=== PATIENT | male | born 1955 | race Caucasian/White ===

== ENCOUNTER 2020-12-10 02:49 | Inpatient (IN) ==
[2020-12-10 03:35] LABS: Basophils # (auto) 0.03 K/uL (0-0.2); Basophils % (auto) 0.1 %; Eosinophils # (auto) 0.13 K/uL (0-0.5); Eosinophils % (auto) 0.6 %; Hematocrit (blood only) 49.1 % (42-52); Hemoglobin 16.9 g/dL (14.0-18.0); Immature Granulocytes # (auto) 0.11 K/uL (0.00-0.02); Immature Granulocytes % (auto) 0.5 %; Lymphocytes # (auto) 1.23 K/uL (1.2-3.4); Lymphocytes % (auto) 5.9 %; Mean Corpuscular Hemoglobin 32.4 pg (25-34); Mean Corpuscular Hgb Conc 34.4 g/dL (32-36); Mean Corpuscular Volume 94.1 fL (80-100); Mean Platelet Volume 11.3 fL (7.4-10.4); Monocytes # (auto) 1.67 K/uL (0.11-0.59); Neutrophils # (auto) 17.75 K/uL (1.4-6.5); Neutrophils % (auto) 84.9 %; Platelet Count 225 K/uL (130-400); RDW Coefficient of Variation 13.3 % (11.5-14.5); RDW Standard Deviation 45.9 fL (36.4-46.3); Red Blood Count 5.22 M/uL (4.7-6.1); White Blood Count 20.92 K/uL (4.8-10.8)
[2020-12-10 03:59] LABS: Alanine Aminotransferase 33 U/L (12-78); Albumin Level 4.8 gm/dl (3.4-5.0); Aspartate Aminotransferase 19 U/L (15-37); BUN Creatinine Ratio 13.4 (10-20); Blood Urea Nitrogen 31 mg/dl (7-18); Calcium 9.9 mg/dl (8.5-10.1); Carbon Dioxide 26 mmol/L (21-32); Chloride 108 mmol/L (98-107); Creatinine Clr Calc Pharmacy 37.4 ml/min; Est GFR (African American) 32.8 ml/min; Est GFR (Non-African American) 28.3 ml/min; Glucose 171 mg/dl (70-99); Lipase 84 U/L (73-393); Potassium 4.3 mmol/L (3.5-5.1); Sodium 140 mmol/L (136-145)
[2020-12-10 04:04] LABS: Albumin Globulin Ratio 1.4 (0.9-2); Alkaline Phosphatase 67 U/L (45-117); Bilirubin,Total 0.8 mg/dl (0.2-1); Globulin 3.4 gm/dl (2.5-4.0); Total Protein 8.2 gm/dl (6.4-8.2); Troponin I < 0.015 ng/ml (0-0.045)
--- NOTE | 2020-12-10 04:13 | Emergency Department Note ---
Impression & Plan Acute kidney injury, Syncope, Concussion, Vomiting and diarrhea Admit to the [facility] ED Provider Note NAME: ANOOP PERSAUD AGE: 65 SEX: M ARRIVES VIA: Ambulance INFORMANT: Patient and the patient's ED PROVIDER(S): Petra Cloud DO CHIEF COMPLAINT: Syncope PLAN: Disposition: Admit to the [facility] group Condition: Fair MEDICAL DECISION MAKING: This is a 65-year-old male patient who presents to the emergency department after a syncopal episode. The patient developed severe explosive nausea, vomiting, and diarrhea around 10 PM this evening. Patient had a syncopal episode while in the toilet around 1 AM this morning where he fell from the toilet and struck his head and face on a tile floor. The patient remained unresponsive on the floor for some time and his called EMS. The patient presented to the emergency department having additional episode of diarrhea. He had no further episodes of vomiting. Laboratory studies showed an increased creatinine compared to his creatinine level in September of 1.3. Patient received IV normal saline solution here in the emergency department. [facility] for [facility] management. Triage Nursing notes reviewed and agree with them. Additional history obtained from his who is at the bedside Prior medical records reviewed Vital Signs: reviewed and unremarkable Differential diagnosis: C-spine injury, head injury, dehydration, foodborne illness, infectious diarrhea, viral illness ER treatment provided: IV normal saline bolus IV normal saline drip Diagnostics interpreted by me: ECG: Normal sinus rhythm at a rate of [address] segment elevation or signs of ischemia. There is no ectopy. QTC is 426 ms. Cardiac Monitoring: Normal sinus rhythm at 85 Laboratory studies: See below HPI: 65/M arrives for evaluation of syncope. The patient describes feeling his usual state of health throughout the day today until 9 PM this evening when he ate dinner which consisted of a chip steak sandwich with cheese and tomatoes. Patient and his ate the same meal. Around 10 PM, the patient developed explosive nausea, vomiting and diarrhea. He had between 6 and 10 diarrheal bowel movements. He then developed vomiting. The patient then had a syncopal episode and fell from the toilet striking his forehead and face off of the tile floor. He remained unresponsive on the floor and EMS was called. ROS: See above HPI for pertinent positives & negatives. A total of 10 systems reviewed and were otherwise negative. PAST MEDICAL HISTORY:Gout, hypertension, hypercholesterolemia PAST SURGICAL HISTORY:The patient had a recent shoulder surgery FAMILY HISTORY:See Below SOCIAL HISTORY:The patient lives with his . HOME MEDICATIONS:See list ALLERGIES:None VITALS:See Below PHYSICAL EXAMINATION: HEENT: Head - normocephalic with a small hematoma to the mid forehead. Pupils are equal, round, and reactive to light. Extraocular eye muscles are intact and sclera are anicteric. Nose - moist nasal mucosa without discharge. Mouth - moist buccal mucosa with some edema to the upper lip. Oropharynx is noneryth ematous and there is no tonsillar exudate or edema noted. Neck: Supple; no pain to palpation over the posterior cervical spine. There is no JVD or cervical lymphadenopathy noted. Heart: Regular rate and rhythm. There is a normal S1 and S2 with no murmurs, clicks, or gallops appreciated. Lungs: Clear to auscultation bilaterally with no wheezes, rales, or rhonchi. Abdomen: Soft, completely nontender, nondistended, with good bowel sounds. There are no palpable pulsatile masses or hepatosplenomegaly. There is no guarding, rigidity, or rebound noted. Extremities: No evidence of cyanosis, clubbing, or edema. There are easily palpable peripheral pulses. Neuro:The patient is awake and alert, oriented to day, time, and place. Muscle strength is 5/5 in all 4 extremities. The patient has equal rehab manager strength and equal pedal push and pull. There are no cerebellar signs. ED COURSE: Times/Reassessments: 0300: The patient was evaluated in room C 11. A complete history and physical was performed. A twelve-lead EKG was obtained as described above. An order was placed for continuous cardiac monitoring. The patient was in a normal sinus rhythm at a rate of 85. The patient was given an additional 500 cc bolus of normal saline solution. He had a few additional episodes of stooling but no further vomiting. We were able to collect a stool specimen for culture. The patient was able to drink ice water without difficulty and had no further nausea. Vital signs remained stable. I reviewed the results of the laboratory studies with the patient. I did obtain recent blood work from the [facility] system. It seems that the patient's creatinine level has more than doubled since September. I discussed the case with the [facility] hospitalist and they will evaluate for further management. Petra Cloud DO Past Med/Surg History Social History Smoking Status: Never smoker Feels Safe at Home: Yes Allergies Allergies Allergy/AdvReac Type Severity Reaction Status Date / Time No Known Allergies Allergy NONE Verified 12/10/20 05:09 Home Meds Home Medications Medication Instructions Recorded Confirmed allopurinol 300 mg tablet 300 mg PO DAILY 12/10/20 12/10/20 atorvastatin 20 mg tablet 20 mg PO DAILY 12/10/20 12/10/20 hydrochlorothiazide 12.5 mg capsule 12.5 mg PO DAILY 12/10/20 12/10/20 lisinopril 40 mg tablet 40 mg PO DAILY 12/10/20 12/10/20 Results & Data (ED) Vital Signs Vital Signs - 24 hr 12/10/20 03:05 12/10/20 03:30 12/10/20 04:00 Temperature 36.7 C Temperature Source Oral Pulse Rate 85 82 85 Respiratory Rate 15 15 18 Respiratory Effort / Characteristics Non-Labored Spontaneous Respiratory Depth Normal Blood Pressure 108/83 129/85 144/75 H Blood Pressure Mean 91 99 98 Pulse Oximetry 100 95 97 Oxygen Delivery Method Room Air Room Air Room Air Sepsis New/Unexplained Change in Mental Status N/A Sepsis Action Taken by Nursing No Action Required 12/10/20 04:30 12/10/20 05:00 Temperature Temperature Source Pulse Rate 79 78 Respiratory Rate 19 14 Respiratory Effort / Characteristics Respiratory Depth Blood Pressure 134/89 134/87 Blood Pressure Mean 104 102 Pulse Oximetry 96 96 Oxygen Delivery Method Room Air Room Air Sepsis New/Unexplained Change in Mental Status Sepsis Action Taken by Nursing Laboratory Data Result diagrams: 12/10/20 03:06 12/10/20 03:06 Lab Results 12/10/20 12/10/20 12/10/20 Range/Units 03:06 03:06 05:00 WBC 20.92 H (4.8-10.8) K/uL RBC 5.22 (4.7-6.1) M/uL Hgb 16.9 (14.0-18.0) g/dL Hct 49.1 (42-52) % MCV 94.1 (80-100) fL MCH 32.4 (25-34) pg MCHC 34.4 (32-36) g/dL RDW Std Deviation 45.9 (36.4-46.3) fL RDW Coeff of Lore 13.3 (11.5-14.5) % Plt Count 225 (130-400) K/uL MPV 11.3 H (7.4-10.4) fL Immature Gran % (Auto) 0.5 % Neut % (Auto) 84.9 % Lymph % (Auto) 5.9 % Scurry % (Auto) 8.0 % Eos % (Auto) 0.6 % Baso % (Auto) 0.1 % Neut # (Auto) 17.75 H (1.4-6.5) K/uL Lymph # (Auto) 1.23 (1.2-3.4) K/uL Scurry # (Auto) 1.67 H (0.11-0.59) K/uL Eos # (Auto) 0.13 (0-0.5) K/uL Baso # (Auto) 0.03 (0-0.2) K/uL Immature Gran # (Auto) 0.11 H (0.00-0.02) K/uL Sodium 140 (136-145) mmol/L Potassium 4.3 (3.5-5.1) mmol/L Chloride 108 H (98-107) mmol/L Carbon Dioxide 26 (21-32) mmol/L Anion Gap 6.0 (3-11) BUN 31 H (7-18) mg/dl Creatinine 2.34 H (0.6-1.4) mg/dl Est Cr Clr Drug Dosing 37.4 ml/min Est GFR ( Amer) 32.8 ml/min Est GFR (Non-Af Amer) 28.3 ml/min BUN/Creatinine Ratio 13.4 (10-20) Glucose 171 H (70-99) mg/dl Calcium 9.9 (8.5-10.1) mg/dl Total Bilirubin 0.8 (0.2-1) mg/dl AST 19 (15-37) U/L ALT 33 (12-78) U/L Alkaline Phosphatase 67 (45-117) U/L Troponin I < 0.015 (0-0.045) ng/ml Total Protein 8.2 (6.4-8.2) gm/dl Albumin 4.8 (3.4-5.0) gm/dl Globulin 3.4 (2.5-4.0) gm/dl Albumin/Globulin Ratio 1.4 (0.9-2) Lipase 84 (73-393) U/L COVID-19 Eval Order Covid19 at [facility] Administered Medications Sodium Chloride (Nss) 500 mls @ 125 mls/hr IV .Q4H ESME Stop: 01/09/21 04:59 Last Admin: 12/10/20 05:13 Dose: 125 mls/hr Documented by: [id number] Discontinued Medications Sodium Chloride (Nss) 500 mls @ 999 mls/hr IV .Q31M ONE Stop: 12/10/20 05:17 Last Infusion: 12/10/20 04:40 Dose: 0 mls/hr Documented by: [id number] Admin: 12/10/20 04:00 Dose: 999 mls/hr Documented by: [id number] Discharge Plan Visit Data Chief Complaint: Syncope Stated Complaint: SYNCOPE, N/V/D ED Provider: Petra Cloud Discharge Problem: Acute kidney injury, Syncope, Concussion, Vomiting and diarrhea Forms Stand Alone Forms: [employer] Prescriptions Prescriptions: No Action atorvastatin 20 mg tablet 20 mg PO DAILY RF: 0 hydrochlorothiazide 12.5 mg capsule 12.5 mg PO DAILY RF: 0 allopurinol 300 mg tablet 300 mg PO DAILY RF: 0 lisinopril 40 mg tablet 40 mg PO DAILY RF: 0 Referrals Referrals: Narciso Beck MD [Primary Care Provider] - Discharge Problem: Syncope Qualifiers: Syncope type: vasovagal syncope Qualified Code(s): R55 - Syncope and collapse Concussion Qualifiers: Encounter type: initial encounter Loss of consciousness presence/duration: with LOC of 30 min or less Qualified Code(s): S06.0X1A - Concussion with loss of consciousness of 30 minutes or less, initial encounter
[2020-12-10] MEDS ORDERED: SODIUM CHLORIDE 0.9% 500 ML IV ONE (04:47)
[2020-12-10] MEDS ORDERED: SODIUM CHLORIDE 0.9% 500 ML IV SCH (05:00)
[2020-12-10] MEDS ORDERED: SODIUM CHLORIDE 0.9% 1000ML 1,000 ML IV SCH ×2 (08:01→19:45)
[2020-12-10] MEDS ORDERED: NITROGLYCERIN SL 0.4 MG/TAB TAB SL PRN (08:01)
[2020-12-10] MEDS ORDERED: ACETAMINOPHEN 325 MG TAB PO PRN (08:01)
[2020-12-10] MEDS ORDERED: hydrALAZINE HCL 20 MG/ML VIAL IV PRN (08:01)
[2020-12-10] MEDS ORDERED: ONDANSETRON INJ 2 MG/ML 2 ML VIAL IV PRN (08:01)
--- NOTE | 2020-12-10 08:17 | History and Physical Report ---
DATE OF ADMISSION: 12/10/2020. CHIEF COMPLAINT: Syncope. HISTORY OF PRESENT ILLNESS: A 65-year-old male with past medical history significant for gout, hyperlipidemia, prediabetes, chronic rhinitis, history of dyspnea, hypertension, history of tinnitus, who lives at home with his , comes because of syncope. The patient worked whole day yesterday outside, but he does not think he was dehydrated because he was not sweating. In the nighttime around 9:00 p.m., he and his ate home made steak sandwich with tomatoes on it. Later his seemed to be okay, but he developed severe diarrhea. He said he had about 8-9 episodes of diarrhea and 6 times vomited and while sitting on the commode, last time he suddenly fell front on his face and he passed out. His says he passed out for about 15-20 seconds and after that he was confused for about 15 minutes. His left side of upper lip is swollen, but there is no obvious bleeding. He has some bruise on the top of his head. Since he came to the ER, his nausea has improved and no more episodes of diarrhea. The patient denies any fever. No chest pain, no shortness of breath, no cough. Currently, no headache, no neck pain. No blurred visions, no double vision, no earache, no runny nose, no sore throat. No abdominal pain, no swelling in the legs, no rash. Hemodynamics are stable currently. ALLERGIES: No known drug allergies. PAST MEDICAL HISTORY: As mentioned above. PAST SURGICAL HISTORY: Colonoscopy, partial removal of colon for benign tumor, left knee arthroscopy, bilateral knee surgery for cartilage. MEDICATIONS: The patient is on allopurinol 300 mg p.o. daily, atorvastatin 20 mg p.o. daily, hydrochlorothiazide 12.5 mg p.o. daily, lisinopril 40 mg p.o. daily. FAMILY HISTORY: Significant for brother has colon polyps, father has colon polyps, aunt has colon cancer. SOCIAL HISTORY: , no smoking. Alcohol rarely. No drug use. REVIEW OF SYSTEMS: As per HPI. Rest of the review of systems is negative. PHYSICAL EXAMINATION: GENERAL: The patient is of moderate build, not in acute distress. VITAL SIGNS: Temperature 36.7, pulse 78, respiratory rate 14, blood pressure 134/87, oxygen 96% on room air. HEENT: Pupils equal, round and reactive to light. Some bruise seen on the top of the head and frontal region. Left side face upper lip is swollen. Oral mucosa moist. NECK: No JVD. No neck masses. Supple. CARDIOVASCULAR: S1 and S2 heard. Regular rate and rhythm. No murmur, no gallop. RESPIRATORY SYSTEM: Normal AP diameter. No accessory muscle use. No wheezing, no crackles. ABDOMEN: Soft, bowel sounds present, nontender, no distention. CENTRAL NERVOUS SYSTEM: Cranial nerves II-XII grossly intact, nonfocal. EXTREMITIES: No edema, no erythema. LABORATORY DATA: WBC 20, hemoglobin 16.9, hematocrit 49.1, platelets 225. Sodium 140, potassium 4.3, chloride 108, bicarbonate 26, BUN 31, creatinine 2.3, serum glucose 171, calcium 9.9, total bilirubin 0.8, AST 19, ALT 33, alkaline phosphatase 67. Troponin I less than 0.015. Lipase 84. EKG: Normal sinus rhythm, rate of 85, possible left atrial enlargement, no acute ST changes seen, no QT prolongation. ASSESSMENT AND PLAN: This is a 65-year-old male, who had severe nausea, vomiting, diarrhea, presents with syncope. 1. Syncope: Most likely from dehydration from nausea, vomiting, and diarrhea. We will check orthostatics. Will give IV fluids. The patient passed out for 15 seconds, hit his head. Will get a CT of the head and place him on IV fluids and monitor in the [facility]. 2. Nausea, vomiting, and diarrhea: Possibly from the food poisoning. It happened after eating steak sandwich, though his did not get sick. Currently, symptoms improved, but will check stool for C. diff and stool for cultures. IV antiemetics prn and IV fluids. Place him on clear liquid diet for now and monitor. 3. Leukocytosis: Probably reactive from above. We will follow stools studies. Follow the repeat labs. 4. Acute kidney injury: The patient's baseline creatinine is 1.1, presently with a creatinine 2.3. Holding his lisinopril and hydrochlorothiazide. Getting fluids. Will monitor and repeat labs. 5. Hypertension: Holding the lisinopril and hydrochlorothiazide because of acute kidney injury. Will place on IV hydralazine p.r.n. Monitor the blood pressure. 6. History of gout: Continue his allopurinol. 7. History of hyperlipidemia: Continue his statin. 8. Prediabetes: Will follow HbA1c level. Will monitor the blood sugars. 9. Deep venous thrombosis prophylaxis: Sequential compression devices for now. DISPOSITION: Closely monitor in the med tele. PT/OT prior to discharge. Social service to help with discharge planning. Job ID: [id number] PHIL
--- NOTE | 2020-12-10 08:55 | Electrocardiogram Report ---
Test Reason : Blood Pressure : / mmHG Vent. Rate : 085 BPM Atrial Rate : 085 BPM P-R Int : 174 ms QRS Dur : 088 ms QT Int : 358 ms P-R-T Axes : 047 050 063 degrees QTc Int : 426 ms Poor data quality, interpretation may be adversely affected Normal sinus rhythm Left atrial enlargement Abnormal ECG When compared with ECG of 23-SEP-2020 12:27, Vent. rate has increased BY [address] and T wave abnormality Inferior leads no longer present Confirmed by Sukumar Calderon ([id number]) on 12/10/2020 8:54:56 AM Referred By: REFERRED SELF Confirmed By:Sukumar Calderon
[2020-12-10] MEDS: ATORVASTATIN 20 MG TAB PO SCH (09:16)
[2020-12-10] MEDS: allopurinoL 300 MG TAB PO SCH (09:16)
[2020-12-10 10:22] LABS: Appearance Urine Cloudy (Clear); Bilirubin Urine Negative (Negative); Blood Urine Negative (Negative); Color Urine Dark Yellow; Epithelial Cell Urine Auto >30 /lpf (0-5); Glucose Urine UA Negative (Negative); Ketones Urine Trace (Negative); Leukocyte Esterase Urine Negative (Negative); Nitrite Urine Negative (Negative); Protein Urine 1+ (Negative); Urobilinogen Urine Negative (Negative)
[2020-12-10 10:49] LABS: Mucus Urine Present (None Prsent)
[2020-12-10 11:05] LABS: Calcium Oxalate Crystals Urine Present (None Prsent)
--- NOTE | 2020-12-10 11:05 | CT Scan Report ---
CT OF THE HEAD WITHOUT CONTRAST CLINICAL HISTORY: syncope, fall and head injury COMPARISON STUDY: No previous studies for comparison. CT DOSE: 638.56 mGycm TECHNIQUE: Helical axial images of the head were obtained without IV contrast. Automated exposure con trol was utilized for the study. A dose lowering technique was utilized adhering to the principles o f ALARA. FINDINGS: No acute intracranial hemorrhage, midline shift or mass effect is present. The ventricular system is unremarkable. The basal cisterns are patent. No extra-axial collections are present. There are no findings to suggest acute dural sinus thrombosis or acute territorial infarct. No significant calvarial abnormalities are present. Visualized portions of the sinuses and mastoid air cells are can ar. IMPRESSION: 1. No acute intracranial findings. 2. No calvarial fracture. ACT 112: Negative or not required by law. Electronically signed by: Mauro Powell M.D. 12/10/2020 11:04 AM
[2020-12-10 11:06] LABS: Bacteria Urine Automated 1+ (Negative)
--- NOTE | 2020-12-10 16:59 | Communication Note ---
Date of Service: December 10, 2020 Patient admitted earlier today with intractable abdominal pain nausea vomiting after having dinner. Possible acute gastritis related to food? GI symptoms has resolved, no diarrhea or loose stool no nausea vomiting or abdominal pain tolerating diet Marked leukocytosis of possible secondary to above Repeat CBC in a.m., Pain is afebrile, no episode of diarrhea or loose stool, Syncope: Possible secondary to acute dehydration volume loss with ongoing diarrhea No further episode of dizzy spell lightheadedness blood pressure been stable, patient received IV fluids Acute renal failure: Secondary to GI loss, Continue IV fluids continue to hold HCTZ and lisinopril Repeat BMP in a.m. Disposition n: Expected to be discharged home tomorrow if electrolytes blood pressure improves to baseline. Update given to patient's and patient at bedside
[2020-12-11 05:53] LABS: Basophils # (auto) 0.01 K/uL (0-0.2); Basophils % (auto) 0.1 %; Eosinophils # (auto) 0.35 K/uL (0-0.5); Eosinophils % (auto) 4.3 %; Hematocrit (blood only) 40.1 % (42-52); Hemoglobin 13.9 g/dL (14.0-18.0); Immature Granulocytes # (auto) 0.02 K/uL (0.00-0.02); Immature Granulocytes % (auto) 0.2 %; Lymphocytes # (auto) 1.53 K/uL (1.2-3.4); Lymphocytes % (auto) 18.7 %; Mean Corpuscular Hemoglobin 32.4 pg (25-34); Mean Corpuscular Hgb Conc 34.7 g/dL (32-36); Mean Corpuscular Volume 93.5 fL (80-100); Mean Platelet Volume 11.1 fL (7.4-10.4); Monocytes # (auto) 1.02 K/uL (0.11-0.59); Monocytes % (auto) 12.4 %; Neutrophils # (auto) 5.27 K/uL (1.4-6.5); Neutrophils % (auto) 64.3 %; Platelet Count 144 K/uL (130-400); RDW Coefficient of Variation 13.5 % (11.5-14.5); Red Blood Count 4.29 M/uL (4.7-6.1)
[2020-12-11 06:26] LABS: BUN Creatinine Ratio 24.6 (10-20); Calcium 8.1 mg/dl (8.5-10.1); Est GFR (African American) 74.4 ml/min; Est GFR (Non-African American) 64.2 ml/min; Magnesium 2.1 mg/dl (1.8-2.4); Potassium 3.9 mmol/L (3.5-5.1)
[2020-12-11 07:14] LABS: Estimated Average Glucose 108 mg/dl; Hemoglobin A1C 5.4 % (4.5-5.6)
[2020-12-11] MEDS: ATORVASTATIN 20 MG TAB PO SCH (09:02)
[2020-12-11] MEDS: allopurinoL 300 MG TAB PO SCH (09:02)
--- NOTE | 2020-12-11 11:43 | Discharge Summary ---
Date of Service December 11, 2020 Admission HPI Per Admitting Provider DICTATED BY: Jayce Issa MD DATE OF ADMISSION: 12/10/2020. CHIEF COMPLAINT: Syncope. HISTORY OF PRESENT ILLNESS: A 65-year-old male with past medical history significant for gout, hyperlipidemia, prediabetes, chronic rhinitis, history of dyspnea, hypertension, history of tinnitus, who lives at home with his , comes because of syncope. The patient worked whole day yesterday outside, but he does not think he was dehydrated because he was not sweating. In the nighttime around 9:00 p.m., he and his ate home made steak sandwich with tomatoes on it. Later his seemed to be okay, but he developed severe diarrhea. He said he had about 8-9 episodes of diarrhea and 6 times vomited and while sitting on the commode, last time he suddenly fell front on his face and he passed out. His says he passed out for about 15-20 seconds and after that he was confused for about 15 minutes. His left side of upper lip is swollen, but there is no obvious bleeding. He has some bruise on the top of his head. Since he came to the ER, his nausea has improved and no more episodes of diarrhea. The patient denies any fever. No chest pain, no shortness of breath, no cough. Currently, no headache, no neck pain. No blurred visions, no double vision, no earache, no runny nose, no sore throat. No abdominal pain, no swelling in the legs, no rash. Hemodynamics are stable currently. Principal Diagnosis Acute gastritis: Resolved Syncope secondary to dehydration -symptom has resolved Acute renal failure secondary to severe diarrhea/dehydration with GI loss: Corrected Discharge Exam Constitutional WD/WN, vitals as above well developed; no acute distress Eyes PERRL, conjunctivae normal, anicteric sclerae ENMT external ear and nose normal, oropharynx normal Mouth: + lip abnormality (Lower lip swelling has been improved) Neck trachea midline, no thyromegaly Respiratory normal respiratory effort, lungs clear to auscultation Cardiovascular RRR, no murmur, no edema Gastrointestinal (Abdomen) normal bowel sounds, soft, nontender, no hepatosplenomegaly Musculoskeletal no cyanosis or clubbing, extremities motor strength 5/5 Skin no rashes, warm and dry Neurologic PERRL, EOMI, accommodation nl, no face palsy, no dysarthria Psychiatric A+Ox3, euthymic affect Discharge Data Allergies Allergy/AdvReac Type Severity Reaction Status Date / Time No Known Allergies Allergy NONE Verified 12/10/20 05:09 Consultations 12/10/20 04:56 ED Decision to Admit Stat Ordered Studies 12/10/20 05:46 CT head/brain wo con Urgent Hospital Course (1) Syncope: due to Dehydration-patient had multiple bowel movements severe diarrhea almost 6 8 hours- Passed out while sitting on the toilet He recovered within 10-15 seconds. Did not had any weakness or paresthesia part of the body, no facial droop Does not have any focal neurological deficit CT head noncontrast change Concussion due to above Mental status back to baseline No complaint of headache or blurred vision Patient had upper lip injury, alcohol, which has resolved as well (2) Vomiting and diarrhea: Acute gastritis possibly secondary to food related Had numerous bowel movement overnight, GI symptoms resolved after admission to hospital No abdominal pain or nausea tolerating diet, no loose bowel movement, Stable to be discharged home, Leukocytosis-on admission white count was elevated to 20K Due to combination of acute gastritis/severe dehydration from the GI loss Right return to normal 8 k with IV hydration orally (3) Acute kidney injury: GI loss with diarrhea/nausea vomiting Baseline creatinine 1.1 on admission was elevated 2.3 Patient's home antihypertensive HCTZ lisinopril kept on hold Creatinine improved to baseline with IV hydration Stable to be discharged home, will have a repeat BMP checked next clinic visit Patient is asked to avoid NSAIDs. Hypertension Home medication of HCTZ lisinopril kept on hold due to acute renal failure/dehydration on admission Creatinine improved to baseline, lisinopril and HCTZ resumed at discharge Repeat BMP in next visit Stable to be discharged home today (4) Concussion: Total Time Total Time Spent Total Time Spent (In Minutes): 35 mins Total Time Includes: Examination of the Patient, Discharge Planning and Medication Reconciliation Discharge Plan Discharge Items Patient Disposition: Home - Self-Care Reason For Visit: SYNCOPE Discharge Diagnosis: Acute gastritis: Resolved Syncope secondary to dehydration -symptom has resolved Acute renal failure secondary to severe diarrhea/dehydration with GI loss: Corrected Activity: Resume your previous activity Non-emergency contact: Primary Care Provider Call non-emergency contact if: you have any medication questions Follow-up/Referrals: Narciso Beck MD [Primary Care Provider] - 12/17/20 10:20 am (Date & Time 12/17/2020 10:20 AM Provider Narciso Beck MD [facility] ) Diet: Heart Healthy Addtl Attending Provider Instructions: Please take all medications as instructed on discharge list below. It is recommended that you follow-up with your primary care physician within 1-2 weeks of hospital discharge to ensure you are still doing well. Please call if you have any questions or problems. You can reach a [facility] hospitalist on duty at [facility] 24 hours a day by calling [phone] Lab: Basic metabolic panel on next clinic visit PLEASE TAKE PROBIOTICS ( OVER THE COUNTER ) DAILY , YOU CAN SUBSTITUTE YOGURTS WITH PROBIOTICS DAILY [employer] [employer] Registrar Provider Instructions: Do not take group of medications belonging to NSAIDs group -can cause worsening of your kidney function. List Of these medications includes but not limited to: Aspirin Diclofenac Ibuprofen, Motrin, Advil Toradol,ketorolac Naproxen, Aleve, Naprosyn You can take Tylenol as needed for pain or fever When buying [id number] pain medications please consult with pharmacy if you are not sure regarding ingredients, as a lot of the pain medications have combination of NSAIDs and Tylenol. Pending Studies at Discharge: No Stand-Alone Forms: My [facility], Smoking Cessation Medications and DC Order Prescriptions: Continued atorvastatin 20 mg tablet 20 mg PO DAILY RF: 0 hydrochlorothiazide 12.5 mg capsule 12.5 mg PO DAILY RF: 0 allopurinol 300 mg tablet 300 mg PO DAILY RF: 0 lisinopril 40 mg tablet 40 mg PO DAILY RF: 0 Discharge Orders: Discharge Order (Routine); Ordered 12/11/20 Ordered By: Alycia Lua Admission Data Admit Date/Time: 12/10/20 05:46 Attending Provider: Alycia Lua Admit Provider: Jayce Issa Primary Care Provider: Narciso Beck Other Providers: Jayce Issa Other Interventions: Discharge Summary Assessment (RN) Last Done: 12/11/20 12:07
== END 2020-12-11 12:38 | disposition home or self-care (01) | DRG 392 ==
LOC: ED 02:49 → 2S 05:46 → 3W 18:54